=== PATIENT | male | born 1985 | race Caucasian/White ===

== ENCOUNTER 2017-01-11 16:32 | Emergency (ER) | payer SELFPAY | END 2017-01-11 17:53 | disposition home or self-care (01) | LOC: ER 16:32 | DX: B34.9 Viral infection, unspecified (principal); F17.210 Nicotine dependence, cigarettes, uncomplicated; Z88.0 Allergy status to penicillin | CPT/HCPCS: 87502 ==

== ENCOUNTER 2017-03-07 22:55 | Emergency (ER) | payer SELFPAY | END 2017-03-08 00:50 | disposition home or self-care (01) | LOC: ER 22:55 | DX: S76.912A Strain of unspecified muscles, fascia and tendons at thigh level, left thigh, initial encounter (principal); F17.210 Nicotine dependence, cigarettes, uncomplicated; Z88.0 Allergy status to penicillin; X50.0XXA Overexertion from strenuous movement or load, initial encounter; Y92.69 Other specified industrial and construction area as the place of occurrence of the external cause; Y99.0 Civilian activity done for income or pay ==